=== PATIENT | female | born 1940 | race Caucasian/White ===

== ENCOUNTER → 2017-02-26 | Outpatient (REF) | payer MEDICARE, BC | LOC: M LAB REF 16:18 | PROVIDERS: ATTEND Physician Assistant | DX: N39.0 Urinary tract infection, site not specified (principal) ==

== ENCOUNTER → 2017-05-01 | Outpatient (REF) | payer MEDICARE | LOC: M LAB REF 12:48 | PROVIDERS: ATTEND Internal Medicine | DX: R31.9 Hematuria, unspecified (principal) ==

== ENCOUNTER → 2017-05-07 | Outpatient (REF) | payer MEDICARE | LOC: M LAB REF 17:40 | PROVIDERS: ATTEND Internal Medicine | DX: R31.9 Hematuria, unspecified (principal) ==

== ENCOUNTER → 2017-05-14 | Outpatient (REF) | payer MEDICARE | LOC: M LAB REF 17:14 | PROVIDERS: ATTEND Internal Medicine | DX: R31.9 Hematuria, unspecified (principal) ==

== ENCOUNTER → 2018-02-11 | Outpatient (REF) | payer MEDICARE ==
[2018-02-11 17:12] LABS: VITAMIN B12 LEVEL 420 PG/ML (247-911)
== END ==
LOC: M LAB REF 16:33
DX: G62.9 Polyneuropathy, unspecified (principal)
CPT/HCPCS: 82607

== ENCOUNTER → 2020-02-16 | Outpatient (CLI) | payer MEDICARE ==
--- NOTE | 2020-02-17 04:39 | REP ---
MRI LEFT SHOULDER: TECHNIQUE: Axial T2 fat-sat, gradient echo, sagittal oblique T2 fat-sat, coronal oblique T1, T2 fat-sat. There is a full-thickness tear of the supraspinatus tendon. Gap in the tendon is approximately 1.6 cm. Increased signal is seen in the infraspinatus and subscapularis tendons, compatible with tendinopathy/tendonitis. There are mild hypertrophic degenerative changes of the acromioclavicular joint with mild subchondral marrow edema and mild fluid in the joint. The acromion is type II. The biceps tendon is within the bicipital groove. There is no tenosynovitis. There is no Hill-Sachs deformity. The deltoid muscle demonstrates no abnormal signal. The biceps-labral complex appears intact. No labral tear is seen. There is mild to moderate chondromalacia at the glenohumeral joint. A couple of tiny subcortical cysts are seen in the superior humeral head. There is a small joint effusion with mild fluid extending into the subacromial-subdeltoid bursa. Mild fluid also extends medially posterior to the subscapularis muscle and tendon. IMPRESSION: Full-thickness tear supraspinatus tendon with a gap in the tendon 1.6 cm. Tendinopathy/tendonitis of the infraspinatus and subscapularis. Cannot exclude partial thickness tears. Mild hypertrophic degenerative changes acromioclavicular joint with a type II acromion. No evidence of a labral tear. Chondromalacia of glenohumeral joint. Mild joint effusion with mild fluid extending into the subacromial-subdeltoid bursa as well as medially posterior to the subscapularis muscle and tendon. Electronically Signed by Garcia Hughes MD 02/19/2020 10:50 P
== END ==
LOC: M RAD 15:18
PROVIDERS: ATTEND Orthopaedic Surgery Sports Medicine
DX: M75.102 Unspecified rotator cuff tear or rupture of left shoulder, not specified as traumatic (principal)

== ENCOUNTER → 2021-01-10 | Outpatient (REF) | payer MEDICARE | LOC: M LAB REF 12:25 | PROVIDERS: ATTEND Internal Medicine | DX: R31.9 Hematuria, unspecified (principal) ==

== ENCOUNTER → 2023-01-02 | Outpatient (REF) | payer MEDICARE ==
[2023-01-02 17:33] LABS: PERCENT SATURATION 6.1 % (13.2-45.0)
[2023-01-02 17:35] LABS: FERRITIN 5.7 NG/ML (7.3-270.7)
== END ==
LOC: M LAB REF 16:15
PROVIDERS: ATTEND Internal Medicine
DX: D64.9 Anemia, unspecified (principal); R53.83 Other fatigue; N39.0 Urinary tract infection, site not specified

== ENCOUNTER → 2023-01-23 | Outpatient (CLI) | payer MEDICARE | LOC: M WUC 13:16 | PROVIDERS: ATTEND Internal Medicine | DX: R09.89 Other specified symptoms and signs involving the circulatory and respiratory systems (principal) ==

== ENCOUNTER → 2023-04-01 | Outpatient (REF) | payer MEDICARE ==
[2023-04-01 12:12] LABS: PERCENT SATURATION 27.2 % (13.2-45.0)
[2023-04-01 12:14] LABS: FERRITIN 15.8 NG/ML (7.3-270.7)
== END ==
LOC: M LAB REF 11:32
PROVIDERS: ATTEND Internal Medicine
DX: R53.83 Other fatigue (principal); R35.0 Frequency of micturition; D50.0 Iron deficiency anemia secondary to blood loss (chronic); G62.9 Polyneuropathy, unspecified

== ENCOUNTER → 2024-02-01 | Outpatient (REF) | payer MEDICARE ==
[2024-02-03 13:18] LABS: PERCENT SATURATION 32.9 % (13.2-45.0)
[2024-02-03 13:20] LABS: FERRITIN 33.3 NG/ML (7.3-270.7)
== END ==
LOC: M LAB REF 11:21
PROVIDERS: ATTEND Internal Medicine
DX: D50.0 Iron deficiency anemia secondary to blood loss (chronic) (principal)